=== PATIENT | male | born 1985 | race Caucasian/White ===

== ENCOUNTER 2024-01-12 07:24 | Outpatient (OUT) | payer OTHER, SELFPAY ==
[2024-01-12 07:47] LABS: Basophils Percent Auto 0.8 % (0.2-2.0); Eosinophils Absolute Auto 0.2 10^3/uL (0.0-0.7); Eosinophils Percent Auto 3.8 % (0.9-7.0); Hematocrit 41.7 % (42.0-54.0); Hemoglobin 13.7 g/dL (14.0-18.0); Lymphocytes Absolute Auto 1.8 10^3/uL (1.2-3.8); Mean Corpuscular HGB Conc 32.9 g/dL (29.9-35.2); Mean Corpuscular Hemoglobin 29.8 pg (25.9-34.0); Mean Corpuscular Volume 90.8 fL (80.0-94.0); Mean Platelet Volume 8.9 fL (9.5-13.5); Monocytes Absolute Auto 0.5 10^3/uL (0.3-0.8); Monocytes Percent Auto 11.1 % (1.7-12.0); Neutrophils Absolute Auto 2.2 10^3/uL (1.4-6.5); Neutrophils Percent Auto 46.3 % (43.0-75.0); Platelet Count 291 10^3/uL (150-450); Red Blood Count 4.59 10^6/uL (4.70-6.10); Red Cell Distribution Width 12.7 % (11.0-15.0); White Blood Count 4.8 10^3/uL (4.0-11.0)
[2024-01-12 08:00] LABS: Estimated Average Glucose 105 mg/dL; Glycohemoglobin A1C 5.3 % (4.5-6.2)
[2024-01-12 08:18] LABS: Alanine Aminotransferase 29 U/L (16-63); Albumin Level 3.8 g/dL (3.4-5.0); Alkaline Phosphatase 53 U/L (46-116); Anion Gap 14.5; Aspartate Amino Transferase 25 U/L (15-37); BUN Creatinine Ratio 22.8; Bilirubin Total 0.3 mg/dL (0.2-1.0); Carbon Dioxide 26.7 mmol/L (21.0-32.0); Chloride 102 mmol/L (98-107); Chol HDL Ratio 3.3; Cholesterol 182 mg/dL (<=200); Estimated GFR (African America >60 (>=60); Estimated GFR (Non-African Ame >60 (>=60); Globulin 3.7 g/dL; Glucose 88 mg/dL (74-106); HDL Cholesterol 55 mg/dL (40-60); LDL Cholesterol Calculated 120.4 mg/dL; Potassium 4.2 mmol/L (3.5-5.1); Sodium 139 mmol/L (136-145); Thyroid Stimulating Hormone 1.749 uIU/mL (0.358-3.740); Total Protein 7.5 g/dL (6.4-8.2); Triglycerides 33 mg/dL (<=150); VLDL CHOLESTEROL 6.6 mg/dL
== END 2024-01-12 07:25 | disposition home or self-care (01) ==
LOC: LAB 07:28
PROVIDERS: PCP Family Medicine; Visit Provider Family Medicine
DX: Z00.00 Encounter for general adult medical examination without abnormal findings (principal)
CPT/HCPCS: 36415; 80053; 80061; 83036; 84436; 84443; 84481; 85025

== ENCOUNTER 2024-12-27 18:32 | Emergency (ER) | payer OTHER, SELFPAY ==
--- OUTSIDE RECORDS SUMMARY | 2024-12-27 18:54 | XMS_ITS | CCD ---
Author Organization [facility] Care Team Providers Care Insurance Manager Name Role Phone MARLEY, DR POON Admitting Unavailable MARLEY, DR POON Attending Unavailable MARLEY, DR POON Primary Care Unavailable MARLEY, DR POON Consulting Unavailable MARLEY, DR POON Admitting Unavailable MARLEY, DR POON Attending Unavailable MARLEY, DR POON Primary Care Unavailable MARLEY, DR POON Consulting Unavailable ZIEBER, DR TORIN Castle Consulting Unavailable MARLEY, DR POON Admitting Unavailable MARLEY, DR POON Attending Unavailable MARLEY, DR POON Primary Care Unavailable Problems Active Problems Problem Classification Problem Date Documented Da te Episodic/Chronic Superficial injury; contusion (4 sources) Contusion of left index finger without damage to nail, initial encounter; Translations: [CONTUS LT IF W/O DAMAGE NAIL INIT] Onset: 08-02-2022 Episodic Unclassified (3 sources) CONTACT W/AND (SUSP) EXPOS COVID-19; Translations: [CONTACT W/AND (SUSP) EXPOS COVID-19] Onset: 08-27-2021 Past or Other Problems Problem Classification Problem Date Documented Da te Episodic/Chronic Unclassified (1 source) CONTACT W/AND (SUSP) EXPOS COVID-19; Translations: [CONTACT W/AND (SUSP) EXPOS COVID-19] Onset: 08-21-2021 Results Test Name Value Interpretation Reference Range Facil ity CT HAND LT WO CONon 08-02-[address] HAND LT WO CON EXAMINATION: CT HAND LT WO CON HISTORY: Contusion of left index finger ; pain; smashed distal second digit of left hand, redness, COMPARISON: No relevant comparison available. TECHNIQUE: Multi-planar CT images were created without IV contrast. Dose reduction techniques were achieved by using automated exposure control and/or adjustment of mA and/or kV according to patient size and/or use of iterative reconstruction technique. FINDINGS: BONES: No fracture, dislocation, or significant degenerative changes. SOFT TISSUES: Soft tissue swelling involving distal second digit; likely edema and/or bone bruising. No appreciable mass, hematoma, fluid collection.. EFFUSION: None visible. OTHER: Negative. IMPRESSION: 1. No acute bone abnormality. 2. Soft tissue swelling of distal second digits consistent with patient history. No fluid collection, mass, or foreign body. Electronically authenticated by: TORIN CARREON Date: 2022-08-02 15:34 Normal [facility] Covid-19 PCR ([facility])on 07-26 SARS-CoV-2 (COVID-19) RNA SANTANA+probe Ql (Unsp spec) Not detected Normal NOT DETECTED [facility] Comment on above: Result Comment: This test is not yet hector roved or cleared by the [place] FDA. When there are no FDA-approved or cleared tests available, and other criteria are met, FDA can make tests available under an emergency access mechanism called an Emergency Use Authorization (EUA). The EUA for this test is supported by the Geospatial Image Analyst of Health and Human Service's (HHS's) declaration that circumstances exist to justify the emergency use of in vitro diagnostics for the detection and/or diagnosis of the virus that causes COVID-19. This EUA will remain in effect (meaning this test can be used) for the duration of the COVID-19 declaration justifying emergency of IVDs, unless it is terminated or revoked by FDA (after which the test may no longer be used). When diagnostic testing is negative, the possibility of a false negative should be considered in the context of a patient's recent exposures and the presence of clinical signs and symptoms consistent with SARS-CoV-2. Performed By: #### [facility] #### [facility] [address] [address] [address] Epi Mayo Encounters Encounter Date Encounter Type Care Provider Facility Start: 08-02-2022 End: 08-03-[address] AYAH ROACH Facility:[facility] Start: 08-30-[address] AYAH ROACH Facility :[facility] Start: 08-21-2021 End: 08-21-[address] AYAH ROACH Facility:[facility] Payers Date Payer Category Payer Unknown [id number] 1985 Unknown [id number] 1985 Unknown [id number] 1959 Unknown [id number] 1960 Unknown [id number] Summary Purpose Family History No Family History Records Found Advance Directives No Advanced Directives Records Found Additional Source Comments (unrecognized sect ion and content) No Status Records Found INFORMATION SOURCE (unrecogn ized section and content) DATE CREATED AUTHOR 08/04/[address] [facility] FOR RECORDS PERTAINING TO PATIENTS WHO ARE OR HAVE BEEN ENROLLED IN A CHEMICAL DEPENDENCY/SUBSTANCEABUSE PROGRAM, SOME INFORMATION MAY BE OMITTED. This clinical summary was aggregated from multiple sources. Caution should be exercised in using it in the provision of clinical care. This summary normalizes information from multiple sources, and as a consequence, information in this document may materially change the coding, format and clinical context of patient data. In addition, data may be omitted in some cases. CLINICAL DECISIONS SHOULD BE BASED ON THE PRIMARY CLINICAL RECORDS. [facility] [employer] [facility]. provides no warranty or guarantee of the accuracy or completeness of information in this document.
[2024-12-27 19:14] VITALS: BP 130/85; PULSE 106; TEMP 36.7; O2SAT 99; BMI 36.0
--- NOTE | 2024-12-27 19:18 | XR_ITS ---
The [address] [address] Patient Name: BAILEY LORENZANA MRN: [id number] date: 1985 Sex: M Assigned Patient Location: ER Current Patient Location: ER Accession/Order Number: [id number] Exam Date: 12/27/2024 19:38 Report Date: 12/27/2024 20:56 At the request of: BHAVNA YATES Procedure: XR foot RT min 3V EXAM: XR foot RT min 3V HISTORY: injured during exercise COMPARISON: None. TECHNIQUE: 3 views of the right foot were obtained. FINDINGS: There is a nondisplaced fracture involving the proximal metaphysis of the fifth metatarsal bone, and one of the fracture lines has subtle extension to the articular surface along the medial aspect. There is no other evidence of an acute fracture or dislocation. The joint spaces are intact. No other focal osseous abnormality is identified. XR/XR foot RT min 3V IMPRESSION: There is a fracture of the proximal aspect of the fifth metatarsal bone. The joint spaces are intact throughout. Electronically authenticated by: MARTHA COHEN Date: 12/27/2024 20:56
--- NOTE | 2024-12-27 19:18 | XR_ITS ---
The [place] [id number] Patient Name: BAILEY LORENZANA MRN: [id number] date: 1985 Sex: M Assigned Patient Location: ER Current Patient Location: ED.MAIN Accession/Order Number: [id number] Exam Date: 12/27/2024 19:38 Report Date: 12/27/2024 20:54 At the request of: BHAVNA YATES Procedure: XR ankle RT min 3V EXAM: XR ankle RT min 3V HISTORY: hurt during exerecise COMPARISON: None. TECHNIQUE: 3 views of the right ankle were obtained. FINDINGS: There is no evidence of an acute fracture or dislocation at the ankle. The joint spaces and mortise are intact. No osteochondral injury is identified. The soft tissues appear unremarkable. XR/XR ankle RT min 3V IMPRESSION: No acute fracture or dislocation at the ankle. The joint spaces are intact. Electronically authenticated by: MARTHA COHEN Date: 12/27/2024 20:54
--- NOTE | 2024-12-27 20:45 | ED.LOWEXI1 ---
HPI HPI - Extremity Injury (Lower) General Chief Complaint: Extremity Injury, Lower Stated Complaint: RIGHT FOOT PAIN Time Seen by Provider: 12/27/24 20:19 Source: patient Limitations: no limitations History of Present Illness HPI Narrative: This 39-year-old male presents for evaluation of right lateral foot pain. He was exercising at home and doing a jumping exercise when he came down hard on his right foot and immediately felt pain in the lateral aspect of the right foot. He did not fall to the ground or experience any additional injuries. He took some ibuprofen prior to coming to the hospital. He has pain in the right foot but denies any ankle calf knee or hip pain. Related Data Home Medications ?Medication ?Instructions ?Recorded ?Confirmed No Known Home Medications 12/27/24 12/27/24 Allergies Allergy/AdvReac Type Severity Reaction Status Date / Time No Known Drug Allergies Allergy Verified 12/27/24 19:17 Opioid HPI Opioid Management Most Recent Pain and Opioid Data: No Data to Display Review of Systems ROS Status of ROS 10 or more systems reviewed and unremarkable except as noted in history and below PFSH PFSH Social History Little interest or pleasure in doing things: not at all Feeling down, depressed, or hopeless: not at all Exam Narrative Exam Narrative: Vital signs and Nursing Notes reviewed: Patient is afebrile, he is mildly tachycardic with a pulse of 106, blood pressure stable, he is not hypoxic with pulse ox of 99% on room air General: Awake, alert, oriented, no acute distress, lying comfortably on the stretcher Chest: Lungs are clear to auscultation with good air entry, there is no wheezing rhonchi or rales appreciated no accessory muscle use, patient is speaking in complete sentences-no chest wall tenderness to palpation CVS: Regular rate and rhythm S1-S2, no murmurs rubs or gallops, pulses are brisk and equal bilaterally ABD: Soft, nondistended, nontender, no rebound guarding or rigidity, bowel sounds are normal, no pulsatile masses appreciated Extremities: Tenderness with mild swelling at the base of the fifth metatarsal on the right. Foot is warm and sensate. There is no ankle, Achilles, calf knee or hip tenderness appreciated. Skin: Normal in appearance without rash,pallor, petechiae or purpura Neuro: No focal deficits Constitutional Vital Signs, click to edit/add: Last Vital Signs Temp 98.0 F 12/27/24 19:14 Pulse 106 H 12/27/24 19:14 Resp 18 12/27/24 19:14 BP 130/85 12/27/24 19:14 Pulse Ox 99 12/27/24 19:14 O2 Del Method Room Air 12/27/24 19:14 Course Vital Signs Vital signs: Vital Signs Temperature 98.0 F 12/27/24 19:14 Pulse Rate 106 H 12/27/24 19:14 Respiratory Rate 18 12/27/24 19:14 Blood Pressure 130/85 12/27/24 19:14 Pulse Oximetry 99 12/27/24 19:14 Oxygen Delivery Method Room Air 12/27/24 19:14 Temperature 98.0 F 12/27/24 19:14 Pulse Rate 106 H 12/27/24 19:14 Respiratory Rate 18 12/27/24 19:14 Blood Pressure 130/85 12/27/24 19:14 Pulse Oximetry 99 12/27/24 19:14 Oxygen Delivery Method Room Air 12/27/24 19:14 MDM - Extremity Injury (Lower) MDM Narrative Medical decision making narrative: This 39-year-old male presents for evaluation of right foot pain after he was doing some exercising at home and came down hard on his right foot causing his ankle to invert. He sustained a nondisplaced fracture of the base of the fifth metatarsal. His ankle x-ray is normal. He was placed in a posterior splint and medicated with a dose of Cleghorn as he had taken Motrin at home. He was given a copy of his x-ray on a disk and will follow-up in [place] with podiatry at his request. Prior to discharge he was given 2 Cleghorn to use overnight and a prescription for Cleghorn, Zofran and ibuprofen. He was given crutches for ambulation. Discharge Plan Discharge Chief Complaint: Extremity Injury, Lower Clinical Impression: Fracture of fifth metatarsal bone of right foot Patient Disposition: Home, Self-Care Time of Disposition Decision: 20:44 Condition: Good Prescriptions / Home Meds: No Action No Known Home Medications Print Language: Maltese Instructions: Foot Fracture in Adults (ED) Referrals: Lenny Riddle MD [Primary Care Provider] - 1 week TORIN HSU [Physician] - 1 week
[2024-12-27] MEDS: ONDANSETRON 4 MG RAPDIS TABLET SL ×2 (21:04→21:05)
[2024-12-27] MEDS: HYDROCODONE/ACET 5-325 MG TABLET 1 TAB PO (21:05)
[2024-12-27] MEDS: HYDROCODONE/ACET 5-325 MG TABLET 2 TAB PO (21:06)
--- NOTE | 2024-12-27 21:26 | PC.NURSE ---
i gave this patient verbal and paper discharge orders along with 3 RX, 2 take home medication, 1 disc and 1 work note. this patient voices yes to understanding all of these. at time of discharge this patient voices no concerns and shows no signs of distress. before discharge this patient given crutches, I gave this patient verbal instruction on use of instruction and this patient gave return correct demonstration of this use of these crutches
== END 2024-12-27 21:30 | disposition home or self-care (01) ==
PROVIDERS: Emergency Provider Emergency Medicine; PCP Family Medicine
DX: S92.354A Nondisplaced fracture of fifth metatarsal bone, right foot, initial encounter for closed fracture (principal); X58.XXXA Exposure to other specified factors, initial encounter
CPT/HCPCS: 29515; 73610; 73630; 99284; Q0162